=== PATIENT | male | born 1995 ===

== ENCOUNTER 2024-02-08 17:26 | Emergency (ER) | payer OTHER ==
[~2024-02-08] VITALS: Ht 157.5 cm; Wt 58.0 kg
[2024-02-08] MEDS ORDERED: LACTULOSE10 GM/15 M PO (19:32)
[2024-02-08] MEDS ORDERED: ONDANSETRON 4 MG HOME.PACK SL ONE (19:45)
[2024-02-08] MEDS ORDERED: LACTULOSE 20 GM/30 ML CUP PO ONE (19:45)
[2024-02-08 19:50] VITALS: BP 118/73
== END 2024-02-08 19:51 | disposition home or self-care (01) ==
LOC: ED 17:26
DX: T18.9XXA Foreign body of alimentary tract, part unspecified, initial encounter (principal); W44.8XXA Other foreign body entering into or through a natural orifice, initial encounter
CPT/HCPCS: 74022; A9270